=== PATIENT | female | born 1950 | race African-American/Black ===

== ENCOUNTER → 2020-06-05 | Outpatient (CLI) | payer OTHER ==
[~2020-06-05] MED LIST: ADVAIR 100-501 EACH INH; ALLEGRA ALLERG180 MG PO; CO-ENZYME Q-1010 MG PO; CRESTOR10 MG PO; EPIPEN JR0.15 MG/01 IM; FISH OIL 500 M1 EAC2 PO; NASACORT10.8 ML NASAL; OMEPRAZOLE40 MG PO; VENTOLIN HFA INH8 GM INH; VITAMIN D325 MC3 PO; ZINC30 MG PO
== END ==
LOC: LAB 09:13
PROVIDERS: ATTEND Specialist
DX: Z01.812 Encounter for preprocedural laboratory examination (principal); Z20.828 Contact with and (suspected) exposure to other viral communicable diseases

== ENCOUNTER → 2020-06-10 | Outpatient (CLI) | payer OTHER ==
[~2020-06-10] VITALS: Ht 172.7 cm; Wt 83.9 kg
--- NOTE | 2020-06-13 10:50 | P ---
[facility] [place] [address] PROCEDURE REPORT Name: SRINATH HANDY Room #: REG [facility].#: [id number] Admission: 06/10/20 Attend Phys: Senthil Kyle Discharge: Date of : 46 Report #: [id number] THIS REPORT FOR: cc: Reena Gage MD, Jennifer S. MD McElhinney, Christian C. MD ~ DATE OF SERVICE: 06/10/2020 PROCEDURE PERFORMED: Colonoscopy with polypectomies. HISTORY OF PRESENT ILLNESS: The patient is a 70-year-old female with a history of colon polyps, here for a 3-year followup. She does report some mild constipation at times. No bleeding. No family history of colon cancer. DESCRIPTION OF PROCEDURE: The risks and benefits of the procedure were explained to the patient, those risks including but not limited to bleeding, perforation, and the risk of sedation. She understood these risks and gave informed consent. Sedation was given using propofol per anesthesia. Next, a digital rectal exam was initially performed, which was normal. Next, using a standard Olympus colonoscope, the scope was placed in the patient's anus and advanced under direct vision to the cecum. The overall prep was good. The cecum and ileocecal valve were normal in appearance. In the ascending colon, 2 polyps were noted, 1 was 8 mm and partially pedunculated. This was removed by snare cautery. The other was a 6 mm sessile, also removed by snare cautery. In the transverse colon, a 5 mm sessile polyp was noted. This was removed with cold forceps. Descending colon was normal. Multiple diverticula noted in the sigmoid colon, no evidence of inflammation, otherwise normal. In the rectum, a 3 mm sessile polyp also removed with cold forceps. On retroflexion, no abnormalities were noted. The scope was then withdrawn and the procedure terminated. The patient tolerated the procedure well. IMPRESSION: 1. Colonic polyps as described above. 2. Sigmoid diverticulosis. 3. Otherwise, normal colonoscopy. RECOMMENDATIONS: 1. Await biopsy results. 2. Repeat colonoscopy in [address] [address] PROCEDURE REPORT Name: SRINATH HANDY [id number] Admission: 06/10/20 Attend Phys: Senthil Kyle Discharge: Date of : 46 Report #: [id number] Thank you for allowing me to participate in her care. <ELECTRONICALLY SIGNED> By: Senthil Mera MD 06/13/20 1050 1042 1212 Senthil Mera MD /nt
--- NOTE | 2020-06-15 18:06 | PATH ---
[facility] [place] [address] [address] PATHOLOGY RPT PROCEDURE Name: GERI DONIS Room #: REG [facility]..#: [id number] Admission: 06/10/20 Date of : 46 Discharge: Report #: [id number] Path Case #: [id number] [facility] Accession Number: [id number] . 01 Material submitted: . PART A: colon - ASCENDING COLON POLYPS X2 PART B: colon - BIOPSY POLYP TRANSVERSE COLON. Modifiers: transverse PART C: rectum - RECTAL POLYP . 01 Clinical history: . HX OF POLYPS, DIVERTICULOSIS, POLYP . 02 Diagnosis: A. Polyp, ascending colon polyp x 2, endoscopic biopsy: - Inflammatory polyp x 1; negative for dysplasia. - Two additional fragments showing hyperplastic polyp; negative for dysplasia. . B. Polyp, transverse colon, endoscopic biopsy: - Minute tubular adenoma. - Negative for high-grade dysplasia. . C. Polyp, rectal polyp, endoscopic biopsy: - Hyperplastic polyp. - Negative for dysplasia. (IUV:pit 06/15/2020) QTP 06/15/2020 1515 Local . 02 Electronically signed: . Chica Monge MD, Pathologist NPI- [id number] . 01 Gross description: . A. Received in formalin labeled "Geri Donis, polypectomy" and further labeled on the problem specimen form as "2 polyps ascending colon" are multiple browning-brown soft tissue fragments measuring in aggregate 2.0 x 0.7 x 0.3 cm. The specimen is submitted entirely in A1. . B. Received in formalin labeled "Geri Donis, BX polyp transverse colon" are two browning-brown soft tissue fragments measuring in aggregate 0.5 x 0.2 x 0.1 cm. The specimen is submitted entirely in B1. . C. Received in formalin labeled "Geri Donis, rectal polyp" are two browning-brown soft tissue fragments measuring in aggregate 0.4 x 0.3 x 0.1 cm. The specimen is submitted entirely in C1. ([facility]; 06/13/2020) [facility] 06/13/2020 1204 Local . [address] [place] [address] PATHOLOGY RPT PROCEDURE Name: GERI DONIS S [facility].#: [id number] Admission: 06/10/20 Date of : 46 Discharge: Report #: [id number] Path Case #: [id number] Pathologist provided ICD-10: K63.5, D12.3, K62.1 . 02 CPT . 939912, [id number], 058890 Specimen Comment: A courtesy copy of this report has been sent to [phone], [phone] Specimen Comment: [phone] Specimen Comment: Report sent to / DR MONTANEZ Performed at: [address], [place] [id number] MD Eros Warren MD Phone: [phone] Performed at: [address] [id number] MD Chica Monge MD Phone: [phone]
== END | disposition home or self-care (01) ==
LOC: GI 08:42
PROVIDERS: ATTEND Specialist
DX: K59.00 Constipation, unspecified (principal); D12.3 Benign neoplasm of transverse colon; K51.40 Inflammatory polyps of colon without complications; K62.1 Rectal polyp; K57.30 Diverticulosis of large intestine without perforation or abscess without bleeding; K21.9 Gastro-esophageal reflux disease without esophagitis; E78.5 Hyperlipidemia, unspecified; J45.909 Unspecified asthma, uncomplicated; M81.0 Age-related osteoporosis without current pathological fracture; Z86.010 Personal history of colon polyps; Z98.890 Other specified postprocedural states; Z79.899 Other long term (current) drug therapy; Z87.891 Personal history of nicotine dependence; Z91.041 Radiographic dye allergy status; Z88.8 Allergy status to other drugs, medicaments and biological substances
CPT/HCPCS: 62110; 62900